=== PATIENT | female | born 1960 ===

== ENCOUNTER 2024-06-05 05:26 | Day surgery (SDC) | payer OTHER ==
[2024-05-31 10:09] LABS: HEMATOCRIT 41.3 % (36.0-45.00); HEMOGLOBIN 13.4 g/dL (12.0-15.00); MEAN CELL VOLUME 88.2 fL (80.00-100.00); MEAN CORPUSCULAR HEMOGLOBIN 28.5 pg (27.00-32.0); MEAN CORPUSCULAR HGB CONC 32.3 g/dl (32.0-36.0); PLATELET COUNT 183 K/uL (150-450); RED BLOOD COUNT 4.68 M/uL (4.00-6.00); RED CELL DISTRIBUTION WIDTH 14.9 % (11.5-14.5)
[2024-05-31 10:12] LABS: PH,URINE 5.5 (5.0-8.0); URINE APPEARANCE Clear; URINE BILIRRUBIN Negative (NEGATIVE); URINE BLOOD Negative; URINE COLOR Yellow; URINE GLUCOSE Negative (NEGATIVE); URINE KETONE Negative (NEGATIVE); URINE LEUKOCYTE Negative; URINE NITRATE Negative; URINE PROTEIN Negative (NEGATIVE); URINE UROBILINOGEN 0.2 E.U./dl
[2024-05-31 10:13] LABS: URINE EPITHELIAL CELLS 14.7 uL (0.0-38.8); URINE RBC 12.2 uL (0.0-20.8); URINE WBC 4.2 uL (0.0-23.2)
[2024-05-31 10:22] VITALS: BP 155/87
[2024-05-31 10:26] LABS: INR 0.96; PARTIAL THROMBOPLASTIN TIME 27.3 SECONDS (22.0-34.0); PROTHROMBIN TIME 10.5 SECONDS (9.0-11.5)
[2024-05-31 11:12] LABS: ALBUMIN 3.7 gm/dL (3.4-5.0); BILIRUBIN TOTAL 0.51 mg/dL (0.3-1.2); CALCIUM 9.6 mg/dL (8.5-10.1); CREATININE SERUM 0.76 mg/dL (0.55-1.02); GFR 76.86; GLOBULINA 3.7 G/DL (2.4-3.5); POTASSIUM 3.41 mEq/L (3.5-5.1); TOTAL PROTEIN 7.4 gm/dL (6.4-8.2)
[~2024-06-05] VITALS: Ht 152.4 cm; Wt 104.3 kg
[~2024-06-05 05:26] MED LIST: DOXAZOSIN MESYLA2 MG PO; LIPITOR40 M1 PO; METFORMIN HCL500 M3 PO; SYNTHROID50 MCG PO; VALSARTAN-HCTZ1 EAC3 PO; VERAPAMIL ER240 MG PO
[2024-06-05] MEDS ORDERED: POVIDONE-IODINE 118 ML BOTT TOP ONE (07:03)
[2024-06-05] MEDS ORDERED: ONDANSETRON HCL 2 MG/ML VIAL IV ONE (09:00)
[2024-06-05] MEDS ORDERED: KETOROLAC TROMETHAMINE 30 MG VIAL IV ONE (09:00)
== END 2024-06-05 14:35 | disposition home or self-care (01) ==
LOC: CIR.AMB 05:26
PROVIDERS: ATTEND Obstetrics & Gynecology
DX: N84.0 Polyp of corpus uteri (principal); N95.0 Postmenopausal bleeding; I10 Essential (primary) hypertension; E03.8 Other specified hypothyroidism; E11.9 Type 2 diabetes mellitus without complications; E78.00 Pure hypercholesterolemia, unspecified